=== PATIENT | female | born 1960 | race Caucasian/White ===

== ENCOUNTER 2023-07-13 23:40 | Emergency (ER) | payer SELFPAY ==
[~2023-07-13] VITALS: Ht 152.4 cm; Wt 66.4 kg
[2023-07-14 01:23] VITALS: O2SAT 97
[2023-07-14] MEDS ORDERED: HYDROCODONE/ACETAMINOPHEN 5/325MG TABLET PO STA (02:46)
[2023-07-14 03:33] VITALS: BP 148/91
[2023-07-14] MEDS ORDERED: IBUP-2029 MT (05:42)
[2023-07-14 07:09] VITALS: PULSE 83; RESP 14; TEMP 98.3
== END 2023-07-14 07:10 | disposition home or self-care (01) ==
LOC: ER 07-14 04:22
DX: R51.9 Headache, unspecified (principal); M54.2 Cervicalgia; R07.89 Other chest pain; M25.562 Pain in left knee; V49.9XXA Car occupant (driver) (passenger) injured in unspecified traffic accident, initial encounter; Y93.89 Activity, other specified; Y92.89 Other specified places as the place of occurrence of the external cause; Y99.8 Other external cause status
CPT/HCPCS: 71046; 72100; 73562; 73590; 99284